=== PATIENT | female | born 1955 | race Caucasian/White ===

== ENCOUNTER 2024-06-02 08:36 | Outpatient (AMB) | payer OTHER, SELFPAY ==
--- NOTE | 2024-06-02 09:34 | MHC.OFFWIV ---
Intake Vital Signs 06/02/24 09:36 Height 5 ft 2 in Weight 144 lb BMI 26.3 BP 118/80 Blood Pressure Location Lt brachial Position Sitting Pulse 89 Pulse Source Pulse Oximeter Temp 98.4 F Temp Source Oral Pulse Oximetry (%) 98 Oxygen Delivery Method Room Air Intake Visit Reasons: Pinch Nerve/ Fell on tailbone Intake Note: pt here c/o tailbone pain due to fall. Happened Thursday Patient Tobacco Use Status: Current everyday Tobacco user Allergies Sulfa (Sulfonamide Antibiotics) [SULFA (SULFONAMIDE ANTIBIOTICS)] Allergy (Unknown, Verified 06/02/24 09:35) HIVES Do you need a note to return to daycare/school/sports/work: No HPI Pinch Nerve/ Fell on tailbone HPI Details This note is constructed using voice recognition software. While every effort has been made to ensure accuracy, eligibility technician errors may have been included. The patient is a 68 year old female who presents to the clinic today with is pain in sacrum and left hip following a fall 2 days ago. She is currently on blood thinner medication. She notes that she fell on concrete landing on her coccyx, she was trying to get into the pool, her hand was wet and she slid. She notes that she sat on the ground for about 45 minutes as nobody else was home before she got up. She notes that when she did get up that it was quite painful to walk and the pain was primarily in her left hip and radiating downward. She has not taken any Tylenol at home due to not having any available, and does not take NSAIDs due to her blood thinners. She has not tried heat or ice for the pain, and has tried to ?tough it out?. She notes that she feels she can no longer tolerate the pain, and presented to be examined today. She denies any chest pain, palpitations, dizziness, lightheadedness prior to the event. She denies loss of control of bowel or bladder after the event. She has no numbness or tingling in her legs. She describes the pain to be throbbing in nature. [facility] [place] Social History (System 03/22/21 @ 14:14 by Rupali Michael) Patient Tobacco Use Status: Current everyday Tobacco user Review of Systems Const All systems reviewed & are unremarkable except as noted in HPI and below Physical Exam Vital Signs: Last Vital Signs Temp 98.4 F 06/02/24 09:36 Pulse 89 06/02/24 09:36 BP 118/80 06/02/24 09:36 Pulse Ox 98 06/02/24 09:36 Oxygen Delivery Method Room Air 06/02/24 09:36 BMI result Body Mass Index 26.3 Const General: cooperative, healthy appearing, comfortable, no acute distress and alert Orientation/consciousness: patient oriented x3 Limitations: no limitations Resp Effort & Inspection: normal respiratory effort and able to speak in complete sentences Auscultation: clear to auscultation bilaterally Cardio Jugular venous distension: no JVD Palpation: normal PMI Rate: regular rate Heart sounds: S1 normal heart sound present, S2 normal heart sound present, no click, no gallops, no murmurs and no rubs Back/Spine/Pelvis Other: Tenderness to help palpation along sacral area, visible ecchymosis over area. Reduced ability to bend forward, and go from sitting to standing due to pain. Antalgic gait present. Skin General skin exam: no rashes or lesions noted, elasticity normal and turgor normal Neuro General: patient oriented x3 Extrem Other: Ecchymosis present to left hip, with area of tenderness. Reduced abduction and adduction due to pain. Strength 5/5, intact distal neurovascular exam. General: Yes capillary refill normal and Yes normal exam except as noted Psych Appearance: grossly normal Mental Status: mental status grossly normal Speech and movement: Normal speech and movement present Affect: normal affect Assessment & Plan Assessment & Plan (1) Sacral pain: Code(s): M53.3 - Sacrococcygeal disorders, not elsewhere classified Plan: X-ray ordered to evaluate for potential fracture. Advised patient to obtain donut or offloading cushion to help with pain. Would consider referral to Orthopedics if fractures present. Given her use of blood thinners, unable to order NSAIDs. Prescription sent for Tylenol as she does not have this at home, as well as prednisone for anti-inflammatory effect. Advised patient to follow up with worsening symptoms or failure to resolve, with PCP. (2) Hip pain, left: Code(s): M25.552 - Pain in left hip Plan: X-ray ordered to evaluate for potential fracture. Advised patient to obtain donut or offloading cushion to help with pain. Would consider referral to Orthopedics if fractures present. Given her use of blood thinners, unable to order NSAIDs. Prescription sent for Tylenol as she does not have this at home, as well as prednisone for anti-inflammatory effect. Advised patient to follow up with worsening symptoms or failure to resolve, with PCP. Plan See above for full details and plan. Orders: Orders XR sacrum coccyx min 2V Today M25.552 - Pain in left hip, M53.3 - Sacrococcygeal disorders, not elsewhere classified XR hip LT w PEL1V Today M25.552 - Pain in left hip, M53.3 - Sacrococcygeal disorders, not elsewhere classified Medications: New acetaminophen 650 mg (2 x 325 mg) PO Q6H 7 days PRN 56 caps 0RF pain prednisone 40 mg (2 x 20 mg) PO DAILY 5 days 10 tabs 0RF Coding Level of Care Code Est Pt Level 4 (90292) Diagnoses Sacral pain M53.3 Hip pain, left M25.552
[2024-06-02 09:36] VITALS: BP 118/80; PULSE 89; TEMP 36.9; O2SAT 98; BMI 26.3
== END 2024-06-02 10:19 | disposition home or self-care (01) ==
PROVIDERS: PCP Internal Medicine; Visit Provider Registered Nurse
DX: M53.3 Sacrococcygeal disorders, not elsewhere classified (principal); M25.552 Pain in left hip
CPT/HCPCS: 99214

== ENCOUNTER 2024-06-02 10:10 | Outpatient (REF) | payer OTHER, SELFPAY ==
--- NOTE | ~2024-06-02 | XR_ITS ---
EXAMINATION: XR HIP, LEFT CLINICAL INFORMATION: Sacrococcygeal disorders, status post fall COMPARISON: None available. TECHNIQUE: Two views of the left hip. FINDINGS: No fracture. Alignment is anatomic. Hip joint space is maintained. Soft tissues are unremarkable. There is deformity with reduction of bone volume of the left iliac wing questionably postsurgical resection. There are no evidence of acute fractures. Sacroiliac joints unremarkable. Patient is status post fusion of the lower lumbar spine. XR/XR hip LT w PEL1V IMPRESSION: No fracture seen
--- NOTE | ~2024-06-02 | XR_ITS ---
EXAMINATION: XR SACRUM AND COCCYX CLINICAL INFORMATION: Sacrococcygeal pain, status post fall. COMPARISON: None available. TECHNIQUE: Sacrum and coccyx, 3 views XR/XR sacrum coccyx min 2V FINDINGS AND IMPRESSION: No acute radiographic abnormalities. 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 Prior lower lumbar laminectomies and instrumented posterior spinal fusion at L4-S1. Alignment is normal at the visualized hips, pubic symphysis and sacroiliac joints. No evidence of sacral or coccygeal fracture.
== END 2024-06-02 10:11 | disposition home or self-care (01) ==
LOC: HO.HMGCX 10:10
PROVIDERS: Visit Provider Registered Nurse
DX: M53.3 Sacrococcygeal disorders, not elsewhere classified (principal); M25.552 Pain in left hip
CPT/HCPCS: 72220; 73502